=== PATIENT | female | born 1960 | race Caucasian/White ===

== ENCOUNTER 2017-06-23 09:03 | Emergency (ER) | payer BC, OTHER ==
--- NOTE | 2017-06-23 09:57 | RAD ---
INDICATION: Cough for 3 weeks COMPARISON: July 27, 2013 TECHNIQUE: Dual energy PA and routine lateral views of the chest were obtained. REPORT: Elevated lung volumes and both diffuse mild prominence of the interstitial markings and patchy rarefaction of the mid to upper lung zone interstitial markings. Small calcified granuloma at the LEFT lung base based on correlation with CT. No alveolar consolidation, suspicious focal pulmonary lesion, pleural effusion, pneumothorax. Negative for cardiomegaly. Unremarkable central pulmonary vasculature. Small calcified LEFT hilar lymph node noted. IMPRESSION: Stigmata of obstructive lung disease and prior granulomatous disease. No acute pulmonary or cardiac process evident.
--- NOTE | 2017-06-23 10:18 | ED ---
HPI Cardiac - HPI Summary HPI Summary: 56 yr old with 3 weeks of coughing, dry, non productive and for three days now pain in the left axilla with coughing. She states she had runny nose, sore throat preceeding this. She has a mild frontal headache as well. No fever. No SOB. She is a smoker. She states the coughing just will not stop. - History of Current Complaint Chief Complaint: UCRespiratory Stated Complaint: COUGH,LEFT SIDE PAIN Time Seen by Provider: 06/23/17 09:32 Hx Last Menstrual Period: 1995 - Allergy/Home Medications Allergies/Adverse Reactions: Allergies Allergy/AdvReac Type Severity Reaction Status Date / Time Siamese cats Allergy Eyes Uncoded 06/23/17 09:17 Itchy/Swollen/Red/Watery Home Medications: Home Medications Ibuprofen TAB* [Advil TAB*] 600 mg PO Q6H PRN 06/23/17 [History Confirmed ] PMH/Surg Hx/FS Hx/Imm Hx - Surgical History Surgery Procedure, Year, and Place: hysterectomy, c-sect x 2 Infectious Disease History: No Infectious Disease History: Denies: Traveled Outside the [place] in Last 30 Days - Family History Known Family History: Positive: Hypertension - Social History Alcohol Use: Occasionally Alcohol Amount: ONCE A MONTH Substance Use Type: Reports: None Smoking Status (MU): Light Every Day Tobacco Smoker Type: Cigarettes Amount Used/How Often: 1/2 PPD Review of Systems Negative: Fever, Chills Positive: Cough, Other - left chest wall pain with coughing. All Other Systems Reviewed And Are Negative: Yes Physical Exam Triage Information Reviewed: Yes Vital Signs On Initial Exam: Initial Vitals Temp Pulse Resp Pulse Ox 98 F 82 18 100 06/23/17 09:18 06/23/17 09:18 06/23/17 09:18 06/23/17 09:18 Vital Signs Reviewed: Yes Appearance: Positive: Well-Appearing, No Pain Distress Skin: Positive: Warm, Skin Color Reflects Adequate Perfusion Head/Face: Positive: Normal Head/Face Inspection Eyes: Positive: EOMI ENT: Positive: Normal ENT inspection, Pharynx normal, TMs normal. Negative: Muffled voice, Hoarse voice Neck: Positive: Nontender Respiratory/Lung Sounds: Positive: Clear to Auscultation, Breath Sounds Present Cardiovascular: Positive: RRR. Negative: Murmur Abdomen Description: Positive: Nontender Musculoskeletal: Positive: Strength/ROM Intact. Negative: Edema Left, Edema Right Neurological: Positive: Sensory/Motor Intact, Alert, Oriented to Person Place, Time, CN Intact II-III Psychiatric: Positive: Normal - Liyah Coma Scale Best Eye Response: 4 - Spontaneous Best Motor Response: 6 - Obeys Commands Best Verbal Response: 5 - Oriented Diagnostics - Vital Signs Vital Signs Temp Pulse Resp Pulse Ox 06/23/17 09:18 98 F 82 18 100 - Laboratory Lab Statement: Any lab studies that have been ordered have been reviewed, and results considered in the medical decision making process. - Radiology chest xray Xray Interpretation: Positive (See Comments) - Increased interstitial markings. Granuloma. Final report reviewed. Radiology Interpretation Completed By: Radiologist Disposition - Course Course Of Treatment: 56 yr old with coughing, interstitial markings, and chest wall strain. Will Rx with zithromax for atypical organisms, and prednisone and albuterol MDI. Her BP is a little elevated. She will follow up with Dr Rehman for a recheck. - Diagnoses Provider Diagnoses: Hypertension, Pneumonia, COPD (chronic obstructive pulmonary disease), Chest wall muscle strain Discharge - Discharge Plan Condition: Good Disposition: HOME Prescriptions: Albuterol HFA INHALER* [Ventolin HFA Inhaler*] 1 - 2 puff INH Q6H PRN #1 mdi PRN Reason: Cough Azithromycin TAB* [Zithromax TAB (Z-ANTONIO) 250 mg #6 tabs] 2 tab PO .TODAY, THEN 1 DAILY #1 antonio predniSONE TAB* [Deltasone TAB*] 40 mg PO DAILY #8 tab Patient Education Materials: COPD (Chronic Obstructive Pulmonary Disease) (ED) , Pneumonia (ED), Hypertension (ED) Referrals: Teodoro Rehman MD [Primary Care Provider] - 2 Days
== END 2017-06-23 10:18 | disposition home or self-care (01) ==
LOC: UCCORT 09:03
DX: J18.9 Pneumonia, unspecified organism (principal); J44.0 Chronic obstructive pulmonary disease with (acute) lower respiratory infection; I10 Essential (primary) hypertension; S29.011A Strain of muscle and tendon of front wall of thorax, initial encounter; X58.XXXA Exposure to other specified factors, initial encounter; Y92.9 Unspecified place or not applicable; F17.210 Nicotine dependence, cigarettes, uncomplicated
CPT/HCPCS: 71020; 99212; G0463

== ENCOUNTER 2019-05-10 09:23 | Emergency (ER) | payer BC, OTHER ==
[2019-05-10 09:40] VITALS: BP 150/76
--- NOTE | 2019-05-10 09:47 | UC ---
Throat Pain/Nasal Ino HPI - HPI Summary HPI Summary: Patient presents to urgent care 3 complaints. 1) patient reports progressive sinus congestion and discomfort for the last 2-3 days. Patient states she's got fullness in the frontal area. Dictating discharge from her nose. Patient with cough and sore throat with postnasal drip. Patient to take over-the- counter Sudafed "everything" and made a head pressure worse. No nausea or vomiting. No fevers or chills. No shortness of breath. 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 2) patient states she developed a dry crusty area on her right eyelid. States has been for approximately 5 days. Patient states at times it itches. Patient has been putting coconut oil on this without improvement. No history of similar. Patient without fevers or chills. No vision changes. 3) patient has a wound on left lower leg that she said has been there since December. Patient states initially it was a bug bite has been itching and picking at. Patient states he continues to fester. No drainage. No painful. States it seems getting " little bit" Patient's medications reviewed this visit - History of Current Complaint Chief Complaint: KAYLEIGHEye Stated Complaint: SINUSES,SKIN COMPLAINT(FACE) Time Seen by Provider: 05/10/19 09:39 Hx Obtained From: Patient Hx Last Menstrual Period: 1995 Pain Intensity: 0 - Allergies/Home Medications Allergies/Adverse Reactions: Allergies Allergy/AdvReac Type Severity Reaction Status Date / Time Siamese cats Allergy Eyes Uncoded 05/10/19 09:40 Itchy/Swollen/Red/Watery Home Medications: Home Medications Alendronate TAB (NF) [Fosamax TAB (NF)] 10 mg PO DAILY 05/10/19 [History Confirmed 05/10/19] PMH/Surg Hx/FS Hx/Imm Hx Previously Healthy: Yes - Surgical History Surgical History: Yes Surgery Procedure, Year, and Place: hysterectomy, c-sect x 2 - Family History Known Family History: Positive: Hypertension, Non-Contributory - Social History Occupation: Employed Full-time Lives: With Family Alcohol Use: Occasionally Alcohol Amount: ONCE A MONTH Substance Use Type: None Smoking Status (MU): Light Every Day Tobacco Smoker Type: Cigarettes Amount Used/How Often: 1/2 PPD Household Exposure Type: Cigarettes - Immunization History Most Recent Influenza Vaccination: NEVER Review of Systems All Other Systems Reviewed And Are Negative: Yes Constitutional: Positive: Negative Eyes: Positive: Negative. Negative: Blurred Vision, Diplopia, Eye Redness, Photophobia Physical Exam - Summary Physical Exam Summary: Vital Signs Reviewed: Yes A+Ox3, no distress Eyes: Conjunctiva Clear, NICOLE. EOM intact and full ENT: Hearing grossly normal TM x 2 clear, sinus congestion - discomfort with palp frontal sinuses, + PND, turbiantes boggy, mmoist, uvula midline, no exudate, no erythema Neck: Positive: Supple Respiratory: Positive: No respiratory distress, No accessory muscle use + CTA throughout no w/r Cardiovascular: RRR nl s1, s2 no m/r CBT <2 sec abd soft + BS nt/nd no guarding, no distension Musculoskeletal Exam: BILLY x 4 without difficulty Strength Intact, ROM Intact Neurological: Positive: Alert, + sensation throughout Psychological: Positive: Normal Response To examiner Skin: Positive: no edema, ecchymosis. Under right eyelid- pt with patch of dry , flaky skin 2cm x 1 cm. no drainage, no blister left anterior distal rojas pt with flesh colored growth 1 cm with central scab - no fluctuance, indruation, drainage, warmth, tenderness Vital Signs: Initial Vital Signs Temp 99.7 F 05/10/19 09:36 Pulse 74 05/10/19 09:36 Resp 16 05/10/19 09:36 BP 150/76 05/10/19 09:36 Pulse Ox 100 05/10/19 09:36 Throat Pain/Nasal Course/Dx - Course Course Of Treatment: 1) Pt with sinus pressure, frontal headache and PND - discomfort, fatigue - exam c/w sinusitis - quarles tart flonase, abx, secretion precations 2) pt with patchy dry, scaly skin under right eyelid - lateral aspect- no concern for cellulitis- recommend hydrocortisone ointment 3) pt with fleshy growth left anterior shint with dry, scabbed surgace- no fluctuant, does not appear infected -d.w pt concern regarding lesion - recommend pt to derm Pt comftable and in agreement with plan referral info provided return precautions - Differential Dx/Diagnosis Provider Diagnosis: Sinusitis, Rash Discharge ED - Sign-Out/Discharge Documenting (check all that apply): Patient Departure All imaging exams completed and their final reports reviewed: No Studies - Discharge Plan Condition: Stable Disposition: HOME Prescriptions: Amoxicillin/Clavulanate TAB* [Augmentin TAB 875*] 875 mg PO BID #14 tab Fluticasone NASAL SPRAY 50MCG* [Flonase NASAL SPRAY 50MCG*] 2 spray BOTH NARES DAILY #1 btl Hydrocortisone 0.5% CM(NF) [Hydrocortisone 0.5% CREAM(NF)] 1 applic TOPICAL BID #1 applic Patient Education Materials: Rhinosinusitis (ED), Acute Rash (ED) Referrals: [facility] D[facility] [Provider Group] (Call to schedule a follow-up appointment. You may request to be seen in [place] or [place] office) Estefanía Springer [Medical Doctor] - Teodoro Rehman MD [Primary Care Provider] - Additional Instructions: - Stay well hydrated. Drink plenty of non-alcoholic, non-caffinated beverages. - Alternate ibuprofen (Advil, Motrin) 600mg and Tylenol every 3 hours for pain or fever. Take with food. Do NOT take for more than 4-5 days. - These infections are spread by secretions - do NOT share eating or drinking utensils - clean items you share with other people such as cell phones, computer mouse, TV remote, computer tablets,etc. Once you have been antibiotics for 2 days, change your toothbrush and your pillowcase. - get plenty of restful sleep - humidify the air in the room where you sleep - boil water, run a hot steam shower, vaporizer, cups of water by heat register - okay to take over the counter decongestant and cough medication - use nasal spray as prescribed - For the dry skin under your right eye - softly apply steroid cream with a Q tip - It is recommended you contact dermatology for evaluation of the recurring rash on your left nose as well as the lesion on your left lower leg - contact your doctor or return with questions or concerns - Billing Disposition and Condition Condition: STABLE Disposition: Home
== END 2019-05-10 10:18 | disposition home or self-care (01) ==
LOC: UCCORT 09:23
DX: J32.9 Chronic sinusitis, unspecified (principal); R21 Rash and other nonspecific skin eruption; H57.89 Other specified disorders of eye and adnexa; R23.4 Changes in skin texture; F17.210 Nicotine dependence, cigarettes, uncomplicated; Z91.09 Other allergy status, other than to drugs and biological substances
CPT/HCPCS: 99212; G0463